=== PATIENT | male | born 1945 | race Native Hawaiian/Other Pacific Islander ===

== ENCOUNTER 2020-05-22 14:08 | Emergency (ER) | payer OTHER ==
[~2020-05-22] VITALS: Ht 152.4 cm; Wt 60.3 kg
[2020-05-22 14:08] VITALS: BP 137/60; TEMP 98.5
[2020-05-22 14:47] LABS: PLATELET COUNT 247 K/uL (142-355)
[2020-05-22 14:58] LABS: POTASSIUM 4.7 mmol/L (3.6-5.2)
[2020-05-22] MEDS ORDERED: FLUTMIS2 INH (16:56)
[2020-05-22] MEDS ORDERED: ASPIR-8181 MG PO (17:00)
[2020-05-22] MEDS ORDERED: APAP325 MG PO (17:00)
[2020-05-22] MEDS ORDERED: PEPCID40 MG PO (17:01)
[2020-05-22] MEDS ORDERED: LIPITOR40 MG PO (17:01)
[2020-05-22] MEDS ORDERED: IBU400 MG PO (17:02)
[2020-05-22] MEDS ORDERED: INSUINJP SC (17:02)
[2020-05-22] MEDS ORDERED: METFORMIN HYDR500 M1 PO (17:03)
[2020-05-22] MEDS ORDERED: INSU100P SC (17:05)
[2020-05-22] MEDS ORDERED: CLOP75TA2 PO (17:05)
[2020-05-22] MEDS ORDERED: MYSOLINE50 MG PO (17:06)
[2020-05-22] MEDS ORDERED: MIRTAZAPINE7.5 MG PO (17:07)
[2020-05-22] MEDS ORDERED: MONT10TA PO (17:07)
[2020-05-22] MEDS ORDERED: CETI10TA PO (17:08)
[2020-05-22] MEDS ORDERED: FINGERSTIX (17:08)
== END 2020-05-22 15:52 | disposition other institution (70) ==
LOC: ED 14:08 → EDBD 14:08 → ED 15:52
PROVIDERS: Family Medicine
DX: F03.91 Unspecified dementia, unspecified severity, with behavioral disturbance (principal); Z04.6 Encounter for general psychiatric examination, requested by authority
CPT/HCPCS: 80053; 85027; 87635; 93005; 99285; U0003